=== PATIENT | male | born 1965 | race Hispanic/Latino ===

== ENCOUNTER 2017-06-09 00:07 | Emergency (ER) | payer OTHER ==
[2017-06-09 00:21] VITALS: RESP 18
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
[2017-06-09 02:45] VITALS: BP 136/85; PULSE 98; TEMP 98; O2SAT 97
== END 2017-06-09 02:45 | disposition home or self-care (01) ==
LOC: C.ER 00:07
DX: F10.129 Alcohol abuse with intoxication, unspecified (principal); Y90.9 Presence of alcohol in blood, level not specified